=== PATIENT | male | born 1965 | race Caucasian/White ===

== ENCOUNTER 2024-01-06 16:27 | Emergency (ER) | payer BC ==
[~2024-01-06] VITALS: Ht 190.5 cm; Wt 113.4 kg
[2024-01-06 17:26] LABS: BASOPHILS # (AUTO) 0.1 K/UL (0.0-0.2); BASOPHILS % (AUTO) 0.6 % (0.0-2.0); EOSINOPHILS # (AUTO) 0.2 K/uL (0.0-0.7); EOSINOPHILS % (AUTO) 1.2 % (0.0-7.0); HEMATOCRIT 41.9 % (36.7-47.1); LYMPHOCYTES # (AUTO) 2.1 K/uL (0.8-4.8); LYMPHOCYTES % (AUTO) 14.4 % (20.5-51.5); MEAN CORPUSCULAR HEMOGLOBIN 28.2 uug (23.8-33.4); MEAN CORPUSCULAR HGB CONC 33 g/dL (32.5-36.3); MEAN CORPUSCULAR VOLUME 84.6 fL (73.0-96.2); MONOCYTES # (AUTO) 1.1 K/uL (0.1-1.30); MONOCYTES % (AUTO) 7.4 % (0.0-11.0); NEUTROPHILS # (AUTO) 11.1 K/uL (1.8-8.9); NEUTROPHILS % (AUTO) 76.4 % (38.5-71.5); PLATELET COUNT (AUTO) 215 K/uL (152-348); RED BLOOD CELL COUNT(AUTO) 4.95 MIL/uL (4.06-5.63); RED CELL DISTRIBUTION WIDTH 13.6 % (12.1-16.2); WHITE BLOOD COUNT (AUTO) 14.6 K/uL (3.6-10.2)
[2024-01-06] MEDS ORDERED: PIPERACILLIN/TAZOBACTAM/D5W 50 ML IV ONE (17:27)
[2024-01-06] MEDS: PIPERACILLIN SODIUM/TAZOBACTAM 3.375 G in IV DEXTROSE 5% 50 ML IV ONE (17:30)
[2024-01-06] MEDS: IV NORMAL SALINE 1000 ML BAG IV ONE (17:30)
[2024-01-06 17:39] LABS: DIFFERENTIAL COMMENT 1
[2024-01-06 17:44] LABS: *BILIRUBIN,URIN NEGATIVE (NEGATIVE); *BLOOD, URINE NEGATIVE (NEGATIVE); *CLARITY,URINE CLEAR (CLEAR); *COLOR,URINE YELLOW (YELLOW); *KETONES,URINE NEGATIVE (NEGATIVE); *PROTEIN,URINE NEGATIVE (NEGATIVE); *UROBILINOGEN,URINE 0.2 E.U./dl (NORMAL); CALCIUM 8.9 mg/dL (8.5-10.1); CARBON DIOXIDE 23 mmol/L (21-32); CHLORIDE 106 mmol/L (98-107); CREATININE 0.8 mg/dL (0.6-1.3); GLUCOSE 115 mg/dL (74-106); LEUKOCYTE ESTERASE ,URINE NEGATIVE (NEGATIVE); NITRITE, URINE NEGATIVE (NEGATIVE); PH,URINE 5.5 (5.0-8.0); POTASSIUM 4.4 mmol/L (3.5-5.1); SODIUM SERUM 140 mmol/L (136-145); UGLUCOSE NEGATIVE (NEGATIVE); UREA NITROGEN, BLOOD 10 mg/dL (7-18)
[2024-01-06 17:53] LABS: ALANINE AMINOTRANSFERASE 29 U/L (16-63); ALBUMIN 3.9 g/dL (3.4-5.0); ALKALINE PHOSPHATASE 111 U/L (50-136); ASPARTATE AMINOTRANSFERASE 9 U/L (15-37); BILIRUBIN,DIRECT 0.3 mg/dL (0.0-0.2); BILIRUBIN,TOTAL 1.7 mg/dL (0.2-1.0); LIPASE 27 U/L (16-77); TOTAL PROTEIN, SERUM 7.3 g/dL (6.4-8.2)
[2024-01-06] MEDS ORDERED: IOHEXOL 300MG/ML 100 ML INFUS..BTL ONE (18:03)
[2024-01-06] MEDS ORDERED: SWABABLE VALVE TRANSFER SET EA MC ONE (18:03)
[2024-01-06] MEDS ORDERED: IV NORMAL SALINE 250 ML IV ONE (18:03)
[2024-01-06] MEDS ORDERED: LEVO500T90 PO (19:53)
[2024-01-06] MEDS ORDERED: METR500T PO (19:53)
[2024-01-06 20:10] VITALS: BP 151/88; TEMP 97.9; O2SAT 97
== END 2024-01-06 20:10 | disposition home or self-care (01) ==
LOC: ER 16:35
DX: K57.32 Diverticulitis of large intestine without perforation or abscess without bleeding (principal); Z79.899 Other long term (current) drug therapy; Z88.1 Allergy status to other antibiotic agents
CPT/HCPCS: 99285; 74177; 96365; 71045; 80076; 80048; 81003; 83690; 85025; 85730; 84484; 36415; 93005; Q9967; J2543; J7040; A4606; A4663

== ENCOUNTER 2024-06-24 12:13 | Inpatient (IN) | payer BC ==
[~2024-06-24] VITALS: Ht 188 cm; Wt 108.9 kg
[~2024-06-24 12:13] MED LIST: LEVO500T90 PO; METR500T PO
[2024-06-24] MEDS: IV NS 1000 ML 1,000 ML IV ONE (12:42)
[2024-06-24] MEDS: METOCLOPRAMIDE HCL 10 MG/2 ML VIAL IV ONE (12:42)
[2024-06-24] MEDS: KETOROLAC TROMETHAMINE 30 MG INJ IVP ONE (12:43)
[2024-06-24 12:44] LABS: BASOPHILS # (AUTO) 0.2 K/UL (0.0-0.2); BASOPHILS % (AUTO) 1.3 % (0.0-2.0); EOSINOPHILS # (AUTO) 0.3 K/uL (0.0-0.7); EOSINOPHILS % (AUTO) 2.4 % (0.0-7.0); HEMATOCRIT 42.2 % (36.7-47.1); LYMPHOCYTES # (AUTO) 2.5 K/uL (0.8-4.8); LYMPHOCYTES % (AUTO) 20.7 % (20.5-51.5); MEAN CORPUSCULAR HEMOGLOBIN 28.1 uug (23.8-33.4); MEAN CORPUSCULAR HGB CONC 33 g/dL (32.5-36.3); MEAN CORPUSCULAR VOLUME 84.7 fL (73.0-96.2); MONOCYTES # (AUTO) 0.6 K/uL (0.1-1.30); MONOCYTES % (AUTO) 5.4 % (0.0-11.0); NEUTROPHILS # (AUTO) 8.3 K/uL (1.8-8.9); NEUTROPHILS % (AUTO) 70.2 % (38.5-71.5); PLATELET COUNT (AUTO) 253 K/uL (152-348); RED BLOOD CELL COUNT(AUTO) 4.98 MIL/uL (4.06-5.63); RED CELL DISTRIBUTION WIDTH 13.9 % (12.1-16.2); WHITE BLOOD COUNT (AUTO) 11.9 K/uL (3.6-10.2)
[2024-06-24 12:54] LABS: DIFFERENTIAL COMMENT 1
[2024-06-24 13:12] LABS: CREATININE 0.9 mg/dL (0.6-1.3); POTASSIUM 4.2 mmol/L (3.5-5.1)
[2024-06-24 13:13] LABS: ALBUMIN 4.1 g/dL (3.4-5.0); BILIRUBIN,TOTAL 1.4 mg/dL (0.2-1.0); TOTAL PROTEIN, SERUM 7.1 g/dL (6.4-8.2)
[2024-06-24] MEDS ORDERED: IV NORMAL SALINE 250 ML IV ONE (14:27)
[2024-06-24] MEDS ORDERED: IOHEXOL 300MG/ML 100 ML INFUS..BTL ONE (14:27)
[2024-06-24] MEDS ORDERED: CELLULOSE,OXIDIZED 2x3 MC ONE (14:27)
[2024-06-24] MEDS ORDERED: PIPERACILLIN/TAZO 4.5 GM VIAL IV ONE (15:59)
[2024-06-24] MEDS: PIPERACILLIN SODIUM/TAZOBACTAM 4.5 G in IV DEXTROSE 5% 50 ML IV ONE (16:10)
[2024-06-24] MEDS ORDERED: METRONIDAZOLE 500 MG/NS 100ML 100 ML IV ONE (17:05)
[2024-06-24] MEDS: METRONIDAZOLE 500 MG/NS 100 ML PIGGYBACK IV ONE (17:11)
[2024-06-24 21:30] VITALS: BP 116/56; TEMP 101; O2SAT 94
[2024-06-24] MEDS ORDERED: ONDANSETRON 4 MG/2 ML VIAL IV PRN (22:00)
[2024-06-24] MEDS ORDERED: PIPERACILLIN SODIUM/TAZOBACTAM 3.375 G in IV DEXTROSE 5% 50 ML IV SCH (22:00)
[2024-06-24] MEDS ORDERED: REMEDY ESSENTIAL ZINC PASTE 113 GM TP PRN (22:00)
[2024-06-24] MEDS: ACETAMINOPHEN 325 MG TABLET PO PRN (22:23)
[2024-06-24] MEDS ORDERED: PIPERACILLIN/TAZOBACTAM/D5W 50 ML IV ONE ×2 (22:23→22:24)
[2024-06-24] MEDS: IV LACTATED RINGERS SOLUTION 1,000 ML IV SCH (22:28)
[2024-06-24] MEDS: PIPERACILLIN SODIUM/TAZOBACTAM 3.375 G in IV DEXTROSE 5% 50 ML IV ONE (22:39)
[2024-06-24] MEDS: KETOROLAC TROMETHAMINE 15 MG INJ IVP PRN (22:39)
[2024-06-24] MEDS: ENOXAPARIN SODIUM 40 MG/0.4 ML DISP.SYRIN SQ SCH (22:45)
[2024-06-25] MEDS: PANTOPRAZOLE SODIUM 40 MG TABLET.DR PO SCH (06:29)
[2024-06-25 06:52] VITALS: BP 103/52; TEMP 98.2; O2SAT 96
[2024-06-25 07:15] LABS: BASOPHILS % (AUTO) 0.1 % (0.0-2.0); EOSINOPHILS % (AUTO) 0.2 % (0.0-7.0); HEMATOCRIT 37.2 % (36.7-47.1); HEMOGLOBIN 12.7 g/dL (12.5-16.3); LYMPHOCYTES # (AUTO) 1.7 K/uL (0.8-4.8); LYMPHOCYTES % (AUTO) 9.5 % (20.5-51.5); MEAN CORPUSCULAR HEMOGLOBIN 28.6 uug (23.8-33.4); MEAN CORPUSCULAR HGB CONC 34 g/dL (32.5-36.3); MONOCYTES # (AUTO) 1.1 K/uL (0.1-1.30); MONOCYTES % (AUTO) 6.3 % (0.0-11.0); NEUTROPHILS % (AUTO) 83.9 % (38.5-71.5); PLATELET COUNT (AUTO) 169 K/uL (152-348); RED BLOOD CELL COUNT(AUTO) 4.42 MIL/uL (4.06-5.63); RED CELL DISTRIBUTION WIDTH 13.8 % (12.1-16.2); WHITE BLOOD COUNT (AUTO) 17.8 K/uL (3.6-10.2)
[2024-06-25 07:29] LABS: CALCIUM 8.8 mg/dL (8.5-10.1); CREATININE 1.1 mg/dL (0.6-1.3); MAGNESIUM 2.2 mg/dL (1.8-2.4); PHOSPHOROUS 3.1 mg/dL (2.5-4.9); POTASSIUM 3.8 mmol/L (3.5-5.1)
[2024-06-25 07:30] LABS: DIFFERENTIAL COMMENT 1
[2024-06-25] MEDS: PIPERACILLIN SODIUM/TAZOBACTAM 3.375 G in IV DEXTROSE 5% 100 ML IV SCH (08:06)
[2024-06-25 11:06] VITALS: BP 111/40; TEMP 97.6; O2SAT 96
[2024-06-25 15:06] VITALS: BP 119/59; TEMP 98.2; O2SAT 99
[2024-06-25 19:15] VITALS: BP 115/62; TEMP 100.5; O2SAT 100
[2024-06-25] MEDS: HYDROMORPHONE 1 MG/1 ML DISP.SYRIN IV PRN (21:08)
[2024-06-26 05:39] VITALS: BP 127/65; TEMP 98.8; O2SAT 93
[2024-06-26 06:40] LABS: BASOPHILS % (AUTO) 0.3 % (0.0-2.0); EOSINOPHILS # (AUTO) 0.1 K/uL (0.0-0.7); HEMATOCRIT 34.4 % (36.7-47.1); HEMOGLOBIN 11.9 g/dL (12.5-16.3); LYMPHOCYTES # (AUTO) 1.6 K/uL (0.8-4.8); LYMPHOCYTES % (AUTO) 11.1 % (20.5-51.5); MEAN CORPUSCULAR HGB CONC 35 g/dL (32.5-36.3); MEAN CORPUSCULAR VOLUME 84.2 fL (73.0-96.2); MONOCYTES # (AUTO) 0.8 K/uL (0.1-1.30); MONOCYTES % (AUTO) 5.4 % (0.0-11.0); NEUTROPHILS # (AUTO) 11.5 K/uL (1.8-8.9); NEUTROPHILS % (AUTO) 82.2 % (38.5-71.5); PLATELET COUNT (AUTO) 159 K/uL (152-348); RED BLOOD CELL COUNT(AUTO) 4.08 MIL/uL (4.06-5.63); RED CELL DISTRIBUTION WIDTH 13.6 % (12.1-16.2)
[2024-06-26 07:05] LABS: CALCIUM 8.5 mg/dL (8.5-10.1); CREATININE 0.9 mg/dL (0.6-1.3); MAGNESIUM 2.4 mg/dL (1.8-2.4); PHOSPHOROUS 2.5 mg/dL (2.5-4.9); POTASSIUM 4.1 mmol/L (3.5-5.1)
[2024-06-26 07:16] LABS: DIFFERENTIAL COMMENT 1
[2024-06-26 11:02] VITALS: BP 114/61; TEMP 98.8; O2SAT 98
[2024-06-26 15:45] VITALS: BP 139/55; TEMP 98.4; O2SAT 98
[2024-06-26 19:45] VITALS: BP 128/64; TEMP 97.9; O2SAT 95
[2024-06-27 06:40] VITALS: BP 134/66; TEMP 97.8; O2SAT 96
[2024-06-27 06:40] LABS: BASOPHILS # (AUTO) 0.1 K/UL (0.0-0.2); BASOPHILS % (AUTO) 0.5 % (0.0-2.0); EOSINOPHILS # (AUTO) 0.2 K/uL (0.0-0.7); EOSINOPHILS % (AUTO) 2.2 % (0.0-7.0); HEMATOCRIT 34.6 % (36.7-47.1); LYMPHOCYTES # (AUTO) 1.6 K/uL (0.8-4.8); MEAN CORPUSCULAR HGB CONC 35 g/dL (32.5-36.3); MEAN CORPUSCULAR VOLUME 83.6 fL (73.0-96.2); MONOCYTES # (AUTO) 0.5 K/uL (0.1-1.30); MONOCYTES % (AUTO) 4.8 % (0.0-11.0); NEUTROPHILS # (AUTO) 8.1 K/uL (1.8-8.9); NEUTROPHILS % (AUTO) 77.5 % (38.5-71.5); PLATELET COUNT (AUTO) 164 K/uL (152-348); RED BLOOD CELL COUNT(AUTO) 4.14 MIL/uL (4.06-5.63); RED CELL DISTRIBUTION WIDTH 13.4 % (12.1-16.2); WHITE BLOOD COUNT (AUTO) 10.4 K/uL (3.6-10.2)
[2024-06-27 06:44] LABS: DIFFERENTIAL COMMENT 1
[2024-06-27 06:52] LABS: CALCIUM 8.6 mg/dL (8.5-10.1); CREATININE 0.7 mg/dL (0.6-1.3); MAGNESIUM 2.2 mg/dL (1.8-2.4); POTASSIUM 3.9 mmol/L (3.5-5.1)
[2024-06-27 11:30] VITALS: BP 126/75; TEMP 98.4; O2SAT 100
[2024-06-27 15:01] VITALS: BP 105/51; TEMP 98.4; O2SAT 97
[2024-06-27 19:40] VITALS: BP_SYST 153; BP_SYST 160; BP_DIAS 77; BP_DIAS 78; TEMP 98.1; O2SAT 94
[2024-06-28 05:55] VITALS: BP 140/63; TEMP 98.1; O2SAT 93
[2024-06-28 06:35] LABS: CALCIUM 8.9 mg/dL (8.5-10.1); CREATININE 0.8 mg/dL (0.6-1.3); MAGNESIUM 2.1 mg/dL (1.8-2.4); PHOSPHOROUS 3.2 mg/dL (2.5-4.9); POTASSIUM 3.8 mmol/L (3.5-5.1)
[2024-06-28 06:37] LABS: BASOPHILS % (AUTO) 0.4 % (0.0-2.0); EOSINOPHILS # (AUTO) 0.3 K/uL (0.0-0.7); EOSINOPHILS % (AUTO) 3.4 % (0.0-7.0); HEMATOCRIT 35.9 % (36.7-47.1); HEMOGLOBIN 12.4 g/dL (12.5-16.3); LYMPHOCYTES # (AUTO) 1.4 K/uL (0.8-4.8); LYMPHOCYTES % (AUTO) 17.3 % (20.5-51.5); MEAN CORPUSCULAR HEMOGLOBIN 28.8 uug (23.8-33.4); MEAN CORPUSCULAR HGB CONC 34 g/dL (32.5-36.3); MEAN CORPUSCULAR VOLUME 83.6 fL (73.0-96.2); MONOCYTES # (AUTO) 0.5 K/uL (0.1-1.30); MONOCYTES % (AUTO) 5.8 % (0.0-11.0); NEUTROPHILS # (AUTO) 5.7 K/uL (1.8-8.9); NEUTROPHILS % (AUTO) 73.1 % (38.5-71.5); PLATELET COUNT (AUTO) 198 K/uL (152-348); RED BLOOD CELL COUNT(AUTO) 4.29 MIL/uL (4.06-5.63); RED CELL DISTRIBUTION WIDTH 13.2 % (12.1-16.2); WHITE BLOOD COUNT (AUTO) 7.8 K/uL (3.6-10.2)
[2024-06-28 07:02] LABS: DIFFERENTIAL COMMENT 1
[2024-06-28] MEDS: HYDROMORPHONE 1 MG/1 ML DISP.SYRIN IV PRN (09:24)
[2024-06-28 11:02] VITALS: BP 143/73; TEMP 98.4; O2SAT 96
[2024-06-28 15:21] VITALS: BP 143/65; TEMP 97.9; O2SAT 95
[2024-06-28 19:00] VITALS: BP 149/70; TEMP 98.4; O2SAT 94
[2024-06-28 19:45] VITALS: BP 149/70; TEMP 98.4; O2SAT 94
[2024-06-29 00:54] VITALS: BP 148/75; TEMP 97.8; O2SAT 93
[2024-06-29 05:08] VITALS: BP 172/87; TEMP 97.8; O2SAT 94
[2024-06-29 10:43] VITALS: BP 156/68; TEMP 97.7; O2SAT 94
[2024-06-29 15:36] VITALS: BP 137/68; TEMP 97.9; O2SAT 94
[2024-06-29 17:37] LABS: DIFFERENTIAL COMMENT 0; EOSINOPHILS # (AUTO) 0.3 K/uL (0.0-0.7); EOSINOPHILS % (AUTO) 3.7 % (0.0-7.0); LYMPHOCYTES # (AUTO) 1.6 K/uL (0.8-4.8)
[2024-06-29 17:40] LABS: BASOPHILS # (AUTO) 0.1 K/UL (0.0-0.2); BASOPHILS % (AUTO) 0.7 % (0.0-2.0); HEMATOCRIT 35.3 % (36.7-47.1); LYMPHOCYTES % (AUTO) 21.6 % (20.5-51.5); MEAN CORPUSCULAR HEMOGLOBIN 28.4 uug (23.8-33.4); MEAN CORPUSCULAR HGB CONC 34 g/dL (32.5-36.3); MEAN CORPUSCULAR VOLUME 83.5 fL (73.0-96.2); MONOCYTES # (AUTO) 0.7 K/uL (0.1-1.30); MONOCYTES % (AUTO) 8.8 % (0.0-11.0); NEUTROPHILS # (AUTO) 4.9 K/uL (1.8-8.9); NEUTROPHILS % (AUTO) 65.2 % (38.5-71.5); PLATELET COUNT (AUTO) 240 K/uL (152-348); RED BLOOD CELL COUNT(AUTO) 4.23 MIL/uL (4.06-5.63); RED CELL DISTRIBUTION WIDTH 13.3 % (12.1-16.2); WHITE BLOOD COUNT (AUTO) 7.5 K/uL (3.6-10.2)
[2024-06-29 19:45] VITALS: BP 144/71; TEMP 98.2; O2SAT 94
[2024-06-29 20:19] VITALS: BP 144/71; TEMP 98.2; O2SAT 94
[2024-06-30 05:53] VITALS: BP 144/83; TEMP 98; O2SAT 95
[2024-06-30 09:16] LABS: BASOPHILS % (AUTO) 0.5 % (0.0-2.0); EOSINOPHILS # (AUTO) 0.3 K/uL (0.0-0.7); EOSINOPHILS % (AUTO) 3.4 % (0.0-7.0); LYMPHOCYTES # (AUTO) 1.6 K/uL (0.8-4.8); LYMPHOCYTES % (AUTO) 18.8 % (20.5-51.5); MEAN CORPUSCULAR HEMOGLOBIN 28.6 uug (23.8-33.4); MEAN CORPUSCULAR HGB CONC 34 g/dL (32.5-36.3); MEAN CORPUSCULAR VOLUME 83.8 fL (73.0-96.2); MONOCYTES # (AUTO) 0.5 K/uL (0.1-1.30); MONOCYTES % (AUTO) 5.7 % (0.0-11.0); NEUTROPHILS # (AUTO) 5.9 K/uL (1.8-8.9); NEUTROPHILS % (AUTO) 71.6 % (38.5-71.5); PLATELET COUNT (AUTO) 239 K/uL (152-348); RED BLOOD CELL COUNT(AUTO) 4.54 MIL/uL (4.06-5.63); RED CELL DISTRIBUTION WIDTH 13.7 % (12.1-16.2); WHITE BLOOD COUNT (AUTO) 8.3 K/uL (3.6-10.2)
[2024-06-30 11:12] VITALS: BP 135/71; TEMP 97.7; O2SAT 96
[2024-06-30] MEDS: HYDROMORPHONE 1 MG/1 ML DISP.SYRIN IV SCH (11:46)
[2024-06-30 15:36] VITALS: BP 149/79; TEMP 98; O2SAT 95
[2024-06-30 20:57] VITALS: BP 156/80; TEMP 98; O2SAT 94
[2024-07-01 04:22] VITALS: BP 133/51; TEMP 97.9; O2SAT 95
[2024-07-01 11:38] VITALS: BP 140/83; TEMP 97.9; O2SAT 96
[2024-07-01 15:44] VITALS: BP 137/69; TEMP 98.4; O2SAT 95
[2024-07-01 20:00] VITALS: BP 156/70; TEMP 97.7; O2SAT 96
[2024-07-02 05:47] VITALS: BP 156/79; TEMP 97.6; O2SAT 95
[2024-07-02 12:00] VITALS: BP 145/65; TEMP 97.9; O2SAT 92
[2024-07-02] MEDS ORDERED: GABA300C PO (15:22)
[2024-07-02] MEDS ORDERED: PANT40TA49 PO (15:22)
[2024-07-02] MEDS ORDERED: ACET325T53 PO (15:22)
[2024-07-02] MEDS ORDERED: TRAZ150T75 PO (15:22)
[2024-07-02] MEDS ORDERED: AMOX-430 PO (15:22)
[2024-07-02] MEDS ORDERED: ONDA4TAB11 PO (15:22)
[2024-07-02] MEDS ORDERED: CLON0.1T PO (15:22)
[2024-07-02 16:00] VITALS: BP 142/76; TEMP 97.6; O2SAT 95
[2024-07-02 20:00] VITALS: BP 143/80; TEMP 98.6; O2SAT 95
[2024-07-03 06:00] VITALS: BP 145/78; TEMP 98.9; O2SAT 94
[2024-07-03 07:02] LABS: BASOPHILS # (AUTO) 0.1 K/UL (0.0-0.2); BASOPHILS % (AUTO) 0.5 % (0.0-2.0); EOSINOPHILS # (AUTO) 0.3 K/uL (0.0-0.7); EOSINOPHILS % (AUTO) 2.9 % (0.0-7.0); HEMATOCRIT 36.4 % (36.7-47.1); HEMOGLOBIN 12.4 g/dL (12.5-16.3); LYMPHOCYTES # (AUTO) 1.5 K/uL (0.8-4.8); LYMPHOCYTES % (AUTO) 15.3 % (20.5-51.5); MEAN CORPUSCULAR HEMOGLOBIN 28.8 uug (23.8-33.4); MEAN CORPUSCULAR HGB CONC 34 g/dL (32.5-36.3); MEAN CORPUSCULAR VOLUME 84.1 fL (73.0-96.2); MONOCYTES # (AUTO) 0.7 K/uL (0.1-1.30); MONOCYTES % (AUTO) 6.7 % (0.0-11.0); NEUTROPHILS # (AUTO) 7.5 K/uL (1.8-8.9); NEUTROPHILS % (AUTO) 74.6 % (38.5-71.5); PLATELET COUNT (AUTO) 258 K/uL (152-348); RED BLOOD CELL COUNT(AUTO) 4.33 MIL/uL (4.06-5.63); RED CELL DISTRIBUTION WIDTH 13.3 % (12.1-16.2)
[2024-07-03 07:05] LABS: DIFFERENTIAL COMMENT 1
[2024-07-03 07:11] LABS: CALCIUM 9.1 mg/dL (8.5-10.1); MAGNESIUM 2.4 mg/dL (1.8-2.4); PHOSPHOROUS 3.3 mg/dL (2.5-4.9); POTASSIUM 4.3 mmol/L (3.5-5.1)
[2024-07-03 11:13] VITALS: BP 133/68; TEMP 98.3; O2SAT 97
== END 2024-07-03 11:55 | disposition home or self-care (01) | DRG 392 ==
LOC: ER 12:25 → MEDSURG3 20:52
PROVIDERS: ADMIT Nurse Practitioner Acute Care; ATTEND Nurse Practitioner Acute Care
DX: K57.20 Diverticulitis of large intestine with perforation and abscess without bleeding (principal); R17 Unspecified jaundice; Z68.31 Body mass index [BMI] 31.0-31.9, adult; E66.9 Obesity, unspecified; Z87.891 Personal history of nicotine dependence; K43.9 Ventral hernia without obstruction or gangrene; Z88.1 Allergy status to other antibiotic agents; F11.11 Opioid abuse, in remission; F10.11 Alcohol abuse, in remission
CPT/HCPCS: 36415; 83735; 84100; 84443; 85025; 93005; G0378; J1171; J1650; J1885; J2543; J2765; J3490; J7120; Q9967